=== PATIENT | male | born 1985 | race American Indian/Alaskan Native ===

== ENCOUNTER 2017-07-29 22:41 | Emergency (ER) | payer SELFPAY ==
[2017-07-29 22:59] VITALS: BP 150/80; PULSE 80; RESP 14; TEMP 97.8; O2SAT 99
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
== END 2017-07-29 23:35 | disposition home or self-care (01) ==
LOC: C.ER 22:41
DX: S20.222A Contusion of left back wall of thorax, initial encounter (principal); Y08.02XA Assault by strike by baseball bat, initial encounter; Y92.9 Unspecified place or not applicable